=== PATIENT | female | born 1950 | race Asian ===

== ENCOUNTER 2020-06-18 11:28 | Emergency (ER) | payer OTHER ==
[~2020-06-18] VITALS: Ht 152.4 cm; Wt 50.0 kg
[2020-06-18] MEDS ORDERED: IBUPROFEN 600 MG TABLET PO ONE (12:15)
[2020-06-18] MEDS ORDERED: ACETAMINOPHEN 500 MG TABLET PO ONE (12:15)
[2020-06-18 13:30] VITALS: BP 155/68
== END 2020-06-18 13:33 | disposition home or self-care (01) ==
LOC: EMS 11:32
DX: S16.1XXA Strain of muscle, fascia and tendon at neck level, initial encounter (principal); V49.88XA Car occupant (driver) (passenger) injured in other specified transport accidents, initial encounter; Y93.89 Activity, other specified; Y92.488 Other paved roadways as the place of occurrence of the external cause; Y99.8 Other external cause status
CPT/HCPCS: 70450; 72125; 99285